=== PATIENT | male | born 1950 | race Caucasian/White ===

== ENCOUNTER 2019-04-19 11:33 | Day surgery (SDC) | payer MEDICARE, OTHER ==
[~2019-04-19] VITALS: Ht 172.7 cm; Wt 85.5 kg
[2019-04-19] VITALS (10 sets, daily range): BP systolic 108–138; BP diastolic 51–72
[2019-04-19] MEDS ORDERED: diphenhydrAMINE 25mg capsule PO PRN (12:05)
[2019-04-19] MEDS ORDERED: LIDOcaine/PRILOcaine 5gm cream TP ONE (12:05)
[2019-04-19] MEDS ORDERED: LORazepam 0.5 MG tablet PO PRN (12:05)
[2019-04-19] MEDS ORDERED: normal saline 1,000 ML IV SCH (12:05)
[2019-04-19] MEDS ORDERED: CHOL50004 PO (12:30)
[2019-04-19] MEDS ORDERED: HYDR12.5 PO (12:30)
[2019-04-19] MEDS ORDERED: DONE10TA7 PO (12:30)
[2019-04-19] MEDS ORDERED: LISI10TA4 PO (12:30)
[2019-04-19] MEDS ORDERED: ASPI81TA52 PO (12:30)
[2019-04-19] MEDS ORDERED: ADV50100 IH (12:30)
[2019-04-19] MEDS ORDERED: ASCO500C15 PO (12:30)
[2019-04-19] MEDS ORDERED: verapamil 2.5 mg/ml inj IV ONE (14:06)
[2019-04-19] MEDS ORDERED: midazolam 2 mg/2 ml injection ONE (14:06)
[2019-04-19] MEDS ORDERED: fentaNYL/PF 50MCG/1 ML 2ML syringe ONE (14:06)
[2019-04-19] MEDS ORDERED: iohexol 350MG/ML 100ml bottle IV ONE (14:07)
[2019-04-19] MEDS ORDERED: nitroGLYCERIN-Tridil 50MG/D5W 250 ML IV ONE (14:07)
[2019-04-19] MEDS ORDERED: heparin 1,000unit/ml 10ml vial 10 ML ONE (14:07)
[2019-04-19] MEDS ORDERED: LIDOcaine 1% (10mg/ml)w/preservative injection 20ml MDV ONE (14:07)
[2019-04-19] MEDS ORDERED: nitroGLYCERIN 0.4mg SUBLingual tab SL PRN (15:30)
[2019-04-19] MEDS ORDERED: OXAZEpam 15mg capsule PO PRN (15:30)
[2019-04-19] MEDS ORDERED: HYDROcodone/acetaminophen 5mg/325mg tablet PO PRN (15:30)
[2019-04-19] MEDS ORDERED: ondansetron/PF 4mg/2ml inj IV PRN (15:30)
[2019-04-19] MEDS ORDERED: HYDROcodone/acetaminophen 10/325mg tab PO PRN (15:30)
[2019-04-19] MEDS ORDERED: proCHLORperazine 10 MG/2 ml inj IV PRN (15:30)
== END 2019-04-19 19:00 | disposition home or self-care (01) ==
LOC: SSTAY O 11:33
PROVIDERS: ATTEND Internal Medicine Interventional Cardiology
DX: I25.10 Atherosclerotic heart disease of native coronary artery without angina pectoris (principal); I35.0 Nonrheumatic aortic (valve) stenosis; I10 Essential (primary) hypertension; F17.200 Nicotine dependence, unspecified, uncomplicated; Z79.82 Long term (current) use of aspirin; Z79.899 Other long term (current) drug therapy
CPT/HCPCS: 93005; 93458; 99152; C1769; J1644; J2001; J2250; J3010; J7030; Q0163; Q9967; A4620; J3490